=== PATIENT | male | born 1955 | race Caucasian/White ===

== ENCOUNTER 2024-02-24 16:26 | Emergency (ER) | payer OTHER ==
--- OUTSIDE RECORDS SUMMARY | 2024-02-24 16:28 | XMS REPORT | Continuity of Care Document ---
Author Name Unknown Address [address] [place] [address] thconnect Address [address] [place] [address] Care Team Providers Care Box Machine Operator Name Role Phone GC_HONEY_Rowe_L Attending Clinician Unavailable GC_HONEY_Rowe_L Admitting Clinician Unavailable Payers Payer Name Policy Type Policy Number Effective Date Expirati on Date Source [facility] [id number] 2023 00:00:00 Problems Condition Name Condition Details Condition Category Status Onset Date Resolution Date Last Treatment Date Treating Clinician Comments Source Hemangioma Hemangioma Problem Active 01-20 00:00: 00 [facility] Allergic contact dermatitis Allergic Contact Dermatitis Problem Active 01-20 00:00: 00 [facility] Actinic keratosis Actinic Keratosis Problem Active 01-20 00:00: 00 [facility] Steatosis of liver Steatosis of Liver Problem Active 01-09 00:00: 00 [facility] 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 Ordering Clinician Indication Dosage Frequency Signature (SIG) Comments Components Source triamcinolo ne acetonide 0.1 % topical ointment APPLY TO AFFECTED AREA TWICE A DAY. triamcinolo ne acetonide 0.1 % topical ointment APPLY TO AFFECTED AREA TWICE A DAY. No triamcinol one acetonide 0.1 % topical ointment APPLY TO AFFECTED AREA TWICE A DAY. [facility] Xyzal 5 mg tablet Take 1 tablet every day by oral route. Xyzal 5 mg tablet Take 1 tablet every day by oral route. No 1 Q1D Xyzal 5 mg tablet Take 1 tablet every day by oral route. [facility] Vital Signs Vital Name Observation Time Observation Value Comments S ource BMI (Body Mass Index) 2024-01-21 00:00:00 24.4 kg/m2 [facility] Body Weight 2024-01-21 00:00:00 2876.8 [oz_av] [facility] BP Systolic 2024-01-21 00:00:00 128 mm[Hg] [facility] BP Diastolic 2024-01-21 00:00:00 87 mm[Hg] [facility] Height 2024-01-21 00:00:00 72 [in_i] [facility] BMI (Body Mass Index) 2023-12-17 00:00:00 24.3 kg/m2 [facility] BP Diastolic 2023-12-17 00:00:00 79 mm[Hg] [facility] Body Weight 2023-12-17 00:00:00 2865 [oz_av] [facility] BP Systolic 2023-12-17 00:00:00 133 mm[Hg] [facility] Height 2023-12-17 00:00:00 72 [in_i] [facility] Procedures Procedure Date / Time Performed Performing Clinicia n Source US ABDOMINAL REAL TIME W/IMAGE DOCUMENTATION 2023-12-17 00:00:00 [facility] Encounters Start Date/Time End Date/Time Encounter Type Admission Type Attending Clinicians Care Facility Care Department Encounter ID Source 2024-01-21 00:00:00 2024-01-21 00:00:00 Elizabeth Mcclure MD: [id number] [place] [address] , Ph. [facility] - GC_HONEY_Ho [facility] Office* [id number] [facility] 2023-12-17 00:00:00 2023-12-17 00:00:00 Elizabeth Mcclure MD: [id number] [place] [address] , Ph. GC_HONEY_Ro we_L [facility] - GC_HONEY_[facility] Office* [id number] [facility] 2023-11-25 00:00:00 2023-11-25 00:00:00 Outpatient GC_HONEY_Ro we_L [facility] PRIV [id number] [facility] Results Test Description Test Time Test Comments Results Result Co mments Source [facility]
[2024-02-24] MEDS ORDERED: AMOX/K CLAV 875 MG TAB ONE (18:08)
[2024-02-24] MEDS ORDERED: TDAP (DIPHTH,PERTUSS(ACELL),TET VAC) 0.5 ML VIAL IMVAC ONE (18:08)
--- NOTE | 2024-02-24 19:01 | ER ---
Nurse's Notes [facility] Name: Mehdi Brooks Age: 69 yrs Sex: Male : 1955 Arrival Date: 02/24/2024 Time: 16:26 Bed 9 Private MD: Diagnosis: Bitten by dog;Puncture wound without foreign body of forearm-right;Puncture wound without foreign body, right lower leg, initial encounter;Puncture wound without foreign body, right thigh, initial encounter Presentation: 02/23 16:37 Chief complaint: Chief complaint: Patient states: "I was staying at a small hotel in [address] and a pitbull dog bit me". Pt reports bites to right arm and right leg, no active bleeding noted, dressing in place. 16:37 Coronavirus screen: At this time, the client does not indicate any symptoms associated [facility] with coronavirus-19. Ebola Screen: Patient denies travel to an Ebola-affected area in the 21 days before illness onset. Initial Sepsis Screen: Does the patient meet any 2 criteria? No. Patient's initial sepsis screen is negative. Does the patient have a suspected source of infection? No. Patient's initial sepsis screen is negative. Risk Assessment: Do you want to hurt yourself or someone else? Patient reports no desire to harm self or others. Onset of symptoms was February 24, 2024. 16:37 Acuity: NICHOLAS 3 aa5 16:37 Method Of Arrival: EMS: [facility] aa Historical: - Allergies: 16:39 No Known Allergies; aa5 - Home Meds: 16:40 None [Active]; aa5 - PMHx: 16:40 None; aa5 - PSHx: 16:40 None; aa5 - Immunization history:: Last tetanus immunization: unknown. - Infectious Disease History:: Denies. - Social history:: Smoking status: Patient denies any tobacco usage or history of. Screenin:37 [facility] ED Fall Risk Assessment (Adult) History of falling in the last 3 months, as6 including since admission No falls in past 3 months (0 pts) Confusion or Disorientation No (0 pts) Intoxicated or Sedated No (0 pts) Impaired Gait No (0 pts) Mobility Assist Device Used No (0 pt) Altered Elimination No (0 pt) Score/Fall Risk Level 0 - 2 = Low Risk Oriented to surroundings, Maintained a safe environment, Educated pt \\T\\ family on fall prevention, incl call for assistance when getting out of bed, Assessed \\T\\ reinforced patient's understanding of fall precautions. Abuse screen: Denies threats or abuse. Denies injuries from another. Nutritional screening: No deficits noted. Tuberculosis screening: No symptoms or risk factors identified. 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 as6 19:14 General: Appears in no apparent distress. Behavior is calm, cooperative. Pain: Denies as6 pain. Derm: Wound noted dorsal aspect of right forearm, right calf and right quadriceps Wound is superficial dog bite. Vital Signs: 16:37 BP 139 / 79; Pulse 46; Resp 18 S; Temp 97.8(TE); Pulse Ox 96% on R/A; Weight 81.65 kg aa5 (R); Height 6 ft. 0 in. (R); 19:13 BP 146 / 84; Pulse 68; Resp 18 S; Pulse Ox 99% on R/A; as6 16:37 Body Mass Index 24.41 (81.65 kg, 182.88 cm) aa5 ED Course: 16:29 Patient arrived in ED. mr 16:35 Manjinder Jang PA is PHCP. cp 16:35 Himanshu Mar MD is Attending Physician. cp 16:37 Arm band placed on. aa5 16:39 Triage completed. aa5 17:36 Sly Swenson, R[place] is Primary Nurse. as6 17:38 Bed in low position. Call light in reach. as6 18:24 XRAY Forearm RIGHT In Process Unspecified. EDMS 18:24 XRAY Femur RIGHT In Process Unspecified. EDMS 18:24 XRAY Tib Fib RIGHT In Process Unspecified. EDMS 19:15 Provided Education on: wound care, abx teaching . as6 19:15 No provider procedures requiring assistance completed. Patient did not have IV access as6 during this emergency room visit. 19:15 Wound care: to puncture located on right quadriceps and right calf and dorsal aspect of as6 right forearm was cleaned with dressed with Neosporin, band aid, Patient tolerated well. Administered Medications: 18:33 Drug: Amoxicillin-Clavulanate PO 875 mg PO once Route: PO; as6 19:13 Follow up: Response: No adverse reaction as6 18:34 Not Given (Product Out of Stock): tetanus-diphtheria toxoidadult 0.5 ml IM once; as6 Provide Vaccine Information Statement (VIS). 18:34 Drug: Boostrix Tdap IM 0.5 ml IM once; as a single dose Route: IM; Site: left deltoid; as6 19:13 Follow up: Response: (VIS) Vaccine information sheet provided today. Questions and/or as6 concerns addressed. VIS edition date: Apr 14, 2021.; No adverse reaction Medication: 18:34 Vaccine Information Statement (VIS) provided today. Questions and/or concerns as6 addressed. VIS edition date: April 14, 2021. Outcome: 19:01 Discharge ordered by . cp 19:15 Discharged to home ambulatory, as6 19:15 Condition: stable 19:15 Discharge instructions given to patient, Instructed on discharge instructions, follow up and referral plans. medication usage, wound care, Demonstrated understanding of instructions, follow-up care, medications, wound care, Prescriptions given X 1, 19:16 Patient left the ED. as6 Signatures: Dispatcher [employer] EDAZ Margarita Mccarty, Reg Reg mr Jossy South, RN RN aa5 Manjinder Jang PA PA Sly Uribe RN RN as6 Corrections: (The following items were deleted from the chart) 16:39 16:37 Method Of Arrival: Ambulatory aa5 aa5 16:41 16:37 Chief complaint: aa5 aa5
--- NOTE | 2024-02-24 19:01 | EDPHYS ---
Physician Documentation [facility] Name: Mehdi Brooks Age: 69 yrs Sex: Male : 1955 Arrival Date: 02/24/2024 Time: 16:26 Bed 9 Private MD: ED Physician Himanshu Mar HPI: 02/23 18:05 This 69 yrs old Male presents to ER via EMS with complaints of Dog Bite. cp 18:05 The patient was bitten on the right forearm and right thigh and right lower calf, by a cp dog, in an unprovoked manner, outdoors. Onset: The symptoms/episode began/occurred just prior to arrival. Animal information: Patient/Caregiver unable to provide information related to the animal. Secondary to the bite the patient reports multiple puncture wounds, that are superficial, that are deep. Associated signs and symptoms: The patient has no apparent associated signs or symptoms. Historical: - Allergies: 16:39 No Known Allergies; aa5 - Home Meds: 16:40 None [Active]; aa5 - PMHx: 16:40 None; aa5 - PSHx: 16:40 None; aa5 - Immunization history:: Last tetanus immunization: unknown. - Infectious Disease History:: Denies. - Social history:: Smoking status: Patient denies any tobacco usage or history of. ROS: 18:10 Skin: Positive for puncture, swelling, of the right forearm and right right thigh and cp right calf, 18:10 Constitutional: Negative for fever, cp 18:10 Neck: Negative for pain with movement, pain at rest, stiffness, 18:10 Cardiovascular: Negative for chest pain, palpitations, 18:10 Respiratory: Negative for cough, shortness of breath, wheezing, 18:10 Back: Negative for pain at rest, pain with movement, 18:10 Neuro: Negative for altered mental status, headache, numbness, tingling, weakness, 18:10 All other systems are negative, Exam: 18:15 Constitutional: The patient appears in no acute distress, alert, awake, comfortable, cp non-toxic, well developed, well nourished, 18:15 Head/Face: Normocephalic, atraumatic. cp 18:15 Chest/axilla: Inspection: normal, 18:15 Cardiovascular: Rate: bradycardic, Rhythm: regular, 18:15 Respiratory: the patient does not display signs of respiratory distress, Respirations: normal, no use of accessory muscles, no retractions, labored breathing, is not present, 18:15 Abdomen/GI: Inspection: abdomen appears normal, 18:15 Back: pain, is absent, ROM is normal, 18:15 Skin: injury, puncture(s), that are superficial, that are deep, of the right calf and right forearm and right thigh, mild bleeding, tender to palpation, Vital Signs: 16:37 BP 139 / 79; Pulse 46; Resp 18 S; Temp 97.8(TE); Pulse Ox 96% on R/A; Weight 81.65 kg aa5 (R); Height 6 ft. 0 in. (R); 19:13 BP 146 / 84; Pulse 68; Resp 18 S; Pulse Ox 99% on R/A; as6 16:37 Body Mass Index 24.41 (81.65 kg, 182.88 cm) aa5 MDM: 16:35 Patient medically screened. cp 18:30 Differential diagnosis: superficial laceration, tendon injury, vascular injury, rabies, cp cellulitis. 19:00 Data reviewed: vital signs, nurses notes, radiologic studies, plain films, and as a result, I will discharge patient. 19:00 I considered the following discharge prescriptions or medication management in the emergency department Medications were administered in the Emergency Department. See MAR. Independent interpretation of the following test(s) in the Emergency Department X-Ray: My interpretation is images of right forearm negative for fracture and images of right femur negative for fracture and images of right tib/fib negative for fracture. Counseling: I had a detailed discussion with the patient and/or guardian regarding the historical points, exam findings, and any diagnostic results supporting the discharge/admit diagnosis, radiology results, to return to the emergency department if symptoms worsen or persist or if there are any questions or concerns that arise at home. Response to treatment: the patient's symptoms have mildly improved after treatment. Special discussion: I discussed in detail with the patient the higher chance of wound infection based on his presenting history. 02/23 18:03 Order name: XRAY Forearm RIGHT cp 02/23 18:03 Order name: XRAY Femur RIGHT cp 02/23 18:03 Order name: XRAY Tib Fib RIGHT cp 02/23 18:58 Order name: Wound dressing; Complete Time: 19:13 cp Administered Medications: 18:33 Drug: Amoxicillin-Clavulanate PO 875 mg PO once Route: PO; as6 19:13 Follow up: Response: No adverse reaction as6 18:34 Not Given (Product Out of Stock): tetanus-diphtheria toxoidadult 0.5 ml IM once; as6 Provide Vaccine Information Statement (VIS). 18:34 Drug: Boostrix Tdap IM 0.5 ml IM once; as a single dose Route: IM; Site: left deltoid; as6 19:13 Follow up: Response: (VIS) Vaccine information sheet provided today. Questions and/or as6 concerns addressed. VIS edition date: Apr 14, 2021.; No adverse reaction Disposition Summary: 02/24/24 19:01 Discharge Ordered Notes: Location: Home cp Problem: new cp Symptoms: have improved cp Condition: Stable cp Diagnosis - Bitten by dog cp - Puncture wound without foreign body of forearm - right cp - Puncture wound without foreign body, right lower leg, initial encounter cp - Puncture wound without foreign body, right thigh, initial encounter cp Followup: cp - With: Private Physician - When: 2 - 3 days - Reason: Worsening of condition Discharge Instructions: - Discharge Summary Sheet cp - How to Change Your Wound Dressing cp - Puncture Wound cp - Animal Bite, Adult cp Forms: - Medication Reconciliation Form cp - Antibiotic Education cp - Prescription Opioid Use cp - Patient Portal Instructions cp - Leadership Thank You Letter cp Prescriptions: - Augmentin 875-125 mg Oral Tablet - take 1 tablet ORAL route every 12 hours for 10 days; 20 tablet; Refills: 0, cp Product Selection Permitted Signatures: Dispatcher [employer] Jossy Rothman, RN RN aa5 Manjinder Jang PA PA cp Sly Swenson RN RN as6 Corrections: (The following items were deleted from the chart) 18:04 18:04 Tib Fib Right+[email or web address] ordered. HAMZAH GOODSON
--- NOTE | 2024-02-24 19:30 | RAD REPORT ---
EXAM DESCRIPTION: RAD - Femur Right - 02/24/2024 6:22 pm CLINICAL HISTORY: ANIMAL BITE COMPARISON: No comparisons TECHNIQUE: Right femur, 2 views. FINDINGS: No fracture is identified. There is no dislocation or periosteal reaction noted. Mild righ t hip joint degenerative changes. No acute or suspicious bony finding. IMPRESSION: No acute osseus abnormality. Mild right hip joint degenerative changes.
--- NOTE | 2024-02-24 19:30 | RAD REPORT ---
EXAM DESCRIPTION: RAD - Tib Fib Right - 02/24/2024 6:22 pm CLINICAL HISTORY: ANIMAL BITE COMPARISON: Femur Right dated 02/24/2024; Forearm Right dated 02/24/2024 TECHNIQUE: Right tibia and fibula, 2 views. FINDINGS: No fracture is identified. There is no dislocation or periosteal reaction noted. No acute or suspicious bony finding. Small amounts of gas along the soft tissues lateral to the knee. IMPRESSION: No acute osseus abnormality. Small amount of gas along the soft tissues lateral to the k nee suggesting a laceration.
--- NOTE | 2024-02-24 19:31 | RAD REPORT ---
EXAM DESCRIPTION: RAD - Forearm Right - 02/24/2024 6:22 pm CLINICAL HISTORY: Pain;Animal bite COMPARISON: No comparisons TECHNIQUE: Right forearm, 2 views. FINDINGS: No fracture is identified. There is no dislocation or periosteal reaction noted. Mild nega tive ulnar variance. No foreign body or other soft tissue abnormality. IMPRESSION: Negative right forearm examination.
[2024-02-24 20:17] VITALS: BP 146/84; TEMP 97.8; O2SAT 99
== END 2024-02-24 19:16 | disposition home or self-care (01) ==
LOC: ER 16:26
DX: S51.831A Puncture wound without foreign body of right forearm, initial encounter (principal); S81.831A Puncture wound without foreign body, right lower leg, initial encounter; S71.131A Puncture wound without foreign body, right thigh, initial encounter; W54.0XXA Bitten by dog, initial encounter
CPT/HCPCS: 96372; 99284